=== PATIENT | female | born 1965 | race Caucasian/White ===

== ENCOUNTER 2016-12-13 13:14 | Inpatient (IN) | payer OTHER ==
[~2016-12-13] VITALS: Ht 152.4 cm; Wt 99.6 kg
[~2016-12-13 13:14] MED LIST: ANUSOL-HC25 MG/SUPP PR; ATIVAN0.5 M1 PO; BUS10 PO; COL100 PO; COLACE100 MG PO; FERROUS SULFAT325 M2 PO; LAC30L PO; LASIX20 MG PO; LEXAPRO10 MG PO; LIDODERM51 TP; LYRICA100 M1 PO; MAC100 PO; MECLIZINE25 M2 PO; MOM PO; NOR10T PO; NORCO1 TA2 PO; OMEPRAZOLE40 M1 PO; ONDANSETRON4 M3 PO; PHENTERMINE37.5 MG PO; PROTONIX20 MG PO; PROVENTIL0.09 MG/A1 INH; ROB750 PO; SIMVASTATIN20 M1 PO; SYNTHROID0.1 MG PO; TRAZODONE HYDR150 MG PO; TRAZODONE50 M1; TRAZODONE50 M1 PO; XANAX0.5 MG PO; XARELTO20 M1 PO
[2016-12-13 14:52] LABS: BASOPHIL % 0.3 % (0-2); PLATELET COUNT 250 x10^3mcL (130-400); RED CELL DISTRIBUTION WIDTH 13.4 % (11.5-14.5)
[2016-12-13 15:05] LABS: CALCIUM 8.7 mg/dL (8.5-10.1); CARBON DIOXIDE 25.5 mmol/L (21-32); CHLORIDE SERUM 105 mmol/L (98-107); GFR1 > 60 mL/min; GLUCOSE SERUM 83 mg/dL (74-106); SODIUM SERUM 142 mmol/L (136-145)
[2016-12-13 15:08] LABS: ALBUMIN 3.7 g/dL (3.4-5.0); ALKALINE PHOSPHATASE 68 U/L (46-116); ALT/SGPT 23 U/L (14-59); AST/SGOT 13 U/L (15-37); BILIRUBIN TOTAL 0.4 mg/dL (0.20-1.00); TOTAL PROTEIN, SERUM 7.2 g/dL (6.4-8.2)
[2016-12-13 16:18] LABS: UA SPECIFIC GRAVITY <=1.005 (1.005-1.035); microscopic required? YES; urine erythrocyte 2+ (NEGATIVE)
[2016-12-13] MEDS ORDERED: VENTOLIN H0.09 MG/A1 INH (16:54)
[2016-12-13 17:46] VITALS: BP 138/70
[2016-12-13 17:46] LABS: T3 TOTAL 0.88 ng/mL
[2016-12-13 18:32] LABS: FREE T4 0.7 ng/dL (0.76-1.46)
[2016-12-13 18:35] LABS: AMPHETAMINE QUAL UR NONE DETECTED (NEG <=1000)
[2016-12-13 18:47] LABS: FREE THYROXINE INDEX 1.3 ug/dL (1.4-4.5); T4(THYROXINE) 4.9 ug/dL (4.7-13.3)
[2016-12-13 18:54] LABS: CHOLESTEROL/HDL RATIO 4.5
[2016-12-13 19:54] LABS: PHOSPHOROUS 3.3 mg/dL (2.5-4.9)
[2016-12-13 21:10] VITALS: BP 138/70
[2016-12-13 22:27] VITALS: BP 109/55
[2016-12-14 06:37] LABS: CALCIUM 8.8 mg/dL (8.5-10.1); CARBON DIOXIDE 24.8 mmol/L (21-32); CHLORIDE SERUM 105 mmol/L (98-107); CREATININE SERUM 0.9 mg/dL (0.6-1.0); GFR1 > 60 mL/min; GLUCOSE SERUM 136 mg/dL (74-106); POTASSIUM SERUM 4.7 mmol/L (3.5-5.1); SODIUM SERUM 141 mmol/L (136-145)
[2016-12-14 06:52] LABS: BASOPHIL % 1.7 % (0-2); PLATELET COUNT 222 x10^3mcL (130-400); RED CELL DISTRIBUTION WIDTH 12.7 % (11.5-14.5)
[2016-12-14 07:06] VITALS: BP 117/51
[2016-12-14 09:55] VITALS: BP 105/77
[2016-12-14 15:20] VITALS: BP 125/66
[2016-12-14 18:20] VITALS: BP 99/57
[2016-12-14 21:49] VITALS: BP 96/47
[2016-12-14 23:41] VITALS: BP 114/74
[2016-12-15 06:25] LABS: BASOPHIL % 0.1 % (0-2); PLATELET COUNT 217 x10^3mcL (130-400); RED CELL DISTRIBUTION WIDTH 13.7 % (11.5-14.5)
[2016-12-15 06:36] LABS: CALCIUM 8.1 mg/dL (8.5-10.1); CARBON DIOXIDE 26.2 mmol/L (21-32); CHLORIDE SERUM 107 mmol/L (98-107); CREATININE SERUM 0.9 mg/dL (0.6-1.0); GFR1 > 60 mL/min; GLUCOSE SERUM 124 mg/dL (74-106); MAGNESIUM 1.9 mg/dL (1.8-2.4); PHOSPHOROUS 2.9 mg/dL (2.5-4.9); POTASSIUM SERUM 4.2 mmol/L (3.5-5.1); SODIUM SERUM 141 mmol/L (136-145)
[2016-12-15 06:50] VITALS: BP 110/50
[2016-12-15 09:18] VITALS: BP 118/55
[2016-12-15] MEDS ORDERED: CIPRO500 MG PO (10:04)
[2016-12-15] MEDS ORDERED: LAC PO (10:04)
[2016-12-15] MEDS ORDERED: NOR10T PO (10:05)
[2016-12-15] MEDS ORDERED: FLE10 PO (10:30)
[2016-12-15] MEDS ORDERED: FIORICET1 CAP PO (11:40)
[2016-12-15 12:08] VITALS: BP 118/55
== END 2016-12-15 13:33 | disposition home or self-care (01) | DRG 205 ==
LOC: ED 13:14 → DU 16:33
PROVIDERS: Emergency Medicine; Family Medicine; ADMIT Family Medicine
DX: M94.0 Chondrocostal junction syndrome [Tietze] (principal); E43 Unspecified severe protein-calorie malnutrition; N39.0 Urinary tract infection, site not specified; Z68.41 Body mass index [BMI] 40.0-44.9, adult; K59.00 Constipation, unspecified; E66.01 Morbid (severe) obesity due to excess calories; E03.9 Hypothyroidism, unspecified; M54.9 Dorsalgia, unspecified; G47.00 Insomnia, unspecified; G89.29 Other chronic pain; E78.5 Hyperlipidemia, unspecified; F41.1 Generalized anxiety disorder; J45.909 Unspecified asthma, uncomplicated; D64.9 Anemia, unspecified; R31.9 Hematuria, unspecified; Z90.49 Acquired absence of other specified parts of digestive tract; Z86.718 Personal history of other venous thrombosis and embolism; Z79.01 Long term (current) use of anticoagulants; Z88.5 Allergy status to narcotic agent; Z88.2 Allergy status to sulfonamides; Z91.040 Latex allergy status; Z91.041 Radiographic dye allergy status; Z79.899 Other long term (current) drug therapy; Z84.1 Family history of disorders of kidney and ureter; Z80.9 Family history of malignant neoplasm, unspecified
CPT/HCPCS: 80307; 83880; 84439; 94150; J0696; J1100; J1170; J1885; J2270; J2405; J3010; J7030; J7620; J7633; Q0092

== ENCOUNTER 2017-05-24 18:52 | Inpatient (IN) | payer OTHER ==
[~2017-05-24] VITALS: Ht 152.4 cm; Wt 100.4 kg
[~2017-05-24 18:52] MED LIST changes: +CIPRO500 MG PO; +FIORICET1 CAP PO; +FLE10 PO; +LAC PO; +VENTOLIN H0.09 MG/A1 INH
[2017-05-24] MEDS ORDERED: LEVOTHYROXINE0.1 M2 PO (20:19)
[2017-05-24] MEDS ORDERED: NOR10T PO (20:20)
[2017-05-24] MEDS ORDERED: XAN1 PO (20:21)
[2017-05-24] MEDS ORDERED: ALBUTEROL0.63 MG/3 (20:23)
[2017-05-24 20:25] LABS: BASOPHIL % 0.3 % (0-2); PLATELET COUNT 273 x10^3mcL (130-400); RED CELL DISTRIBUTION WIDTH 14.3 % (11.5-14.5)
[2017-05-24 20:38] LABS: CALCIUM 8.8 mg/dL (8.5-10.1); CHLORIDE SERUM 103 mmol/L (98-107); CREATININE SERUM 0.9 mg/dL (0.6-1.0); GFR1 > 60 mL/min; GLUCOSE SERUM 91 mg/dL (74-106); POTASSIUM SERUM 3.7 mmol/L (3.5-5.1); SODIUM SERUM 139 mmol/L (136-145)
[2017-05-24 20:45] LABS: ALBUMIN 3.8 g/dL (3.4-5.0); ALKALINE PHOSPHATASE 76 U/L (46-116); ALT/SGPT 23 U/L (14-59); AST/SGOT 21 U/L (15-37); BILIRUBIN TOTAL 0.3 mg/dL (0.20-1.00); HDL CHOLESTEROL 44 mg/dL (40-60); LIPASE 102 IU/L (73-393); TOTAL PROTEIN, SERUM 7.3 g/dL (6.4-8.2)
[2017-05-24 20:46] LABS: CHOLESTEROL 228 mg/dL (<200); CHOLESTEROL/HDL RATIO 5.2; TRIGLYCERIDES 261 mg/dL (<150)
[2017-05-24 20:51] LABS: T3 TOTAL 1.22 ng/mL
[2017-05-24 21:31] LABS: UA SPECIFIC GRAVITY 1.025 (1.005-1.035)
[2017-05-24 21:32] LABS: microscopic required? YES; urine erythrocyte TRACE (NEGATIVE)
[2017-05-24 21:51] LABS: FREE T4 0.71 ng/dL (0.76-1.46); FREE THYROXINE INDEX 2.1 ug/dL (1.4-4.5); T4(THYROXINE) 6.9 ug/dL (4.7-13.3)
[2017-05-24 22:00] VITALS: BP 116/75
[2017-05-24 22:08] VITALS: Ht 152.4 cm; Wt 100.4 kg
[2017-05-24 22:43] LABS: MAGNESIUM 1.9 mg/dL (1.8-2.4); PHOSPHOROUS 3.1 mg/dL (2.5-4.9)
[2017-05-24] MEDS ORDERED: VITAMIN C500 M4 PO (23:40)
[2017-05-25 06:12] VITALS: BP 134/89
[2017-05-25 07:14] VITALS: BP 134/89
[2017-05-25 09:26] VITALS: BP 114/50
[2017-05-25 14:21] VITALS: BP 123/75
[2017-05-25 16:45] LABS: AMPHETAMINE QUAL UR NONE DETECTED (NEG <=1000)
[2017-05-25 18:51] VITALS: BP 97/42
[2017-05-25 21:45] VITALS: BP 94/60
[2017-05-26 06:59] VITALS: BP 101/46
[2017-05-26] MEDS ORDERED: PROVENTIL0.09 MG/A1 INH ×2 (13:20→16:18)
[2017-05-26] MEDS ORDERED: TRAZODONE150 M1 PO ×2 (13:21→16:18)
[2017-05-26 16:11] VITALS: BP 101/46
[2017-05-26] MEDS ORDERED: HYDROCODONE BIT1 T49 PO (16:12)
== END 2017-05-26 17:09 | disposition home or self-care (01) | DRG 206 ==
LOC: ED 18:52 → DU 21:14
PROVIDERS: Internal Medicine Gastroenterology; Specialist; ADMIT Family Medicine
PROC: 0DB68ZX Excision of Stomach, Via Natural or Artificial Opening Endoscopic, Diagnostic (ICD-10-PCS; principal; 2017-05-26 08:00)
DX: M94.0 Chondrocostal junction syndrome [Tietze] (principal); Z68.41 Body mass index [BMI] 40.0-44.9, adult; K29.70 Gastritis, unspecified, without bleeding; K82.8 Other specified diseases of gallbladder; J45.909 Unspecified asthma, uncomplicated; R73.03 Prediabetes; E03.9 Hypothyroidism, unspecified; F41.9 Anxiety disorder, unspecified; E66.01 Morbid (severe) obesity due to excess calories; E78.5 Hyperlipidemia, unspecified; Z86.711 Personal history of pulmonary embolism; Z86.718 Personal history of other venous thrombosis and embolism
CPT/HCPCS: 43235; 83880; 84439; 85378; J1200; J1610; J2250; J2270; J2310; J2405; J2765; J3010; J3490; J3535; J7030; J7613; Q0092

== ENCOUNTER 2018-02-23 18:40 | Emergency (ER) | payer OTHER ==
[~2018-02-23] VITALS: Ht 154.9 cm; Wt 102.5 kg
[~2018-02-23 18:40] MED LIST changes: +ALBUTEROL0.63 MG/3; +HYDROCODONE BIT1 T49 PO; +LEVOTHYROXINE0.1 M2 PO; +TRAZODONE150 M1 PO; +VITAMIN C500 M4 PO; +XAN1 PO
[2018-02-23 19:11] VITALS: Ht 154.9 cm; Wt 102.5 kg
[2018-02-24 00:40] VITALS: BP 143/82
== END 2018-02-24 00:40 | disposition home or self-care (01) ==
LOC: ED 18:40
DX: S63.91XA Sprain of unspecified part of right wrist and hand, initial encounter (principal); S66.811A Strain of other specified muscles, fascia and tendons at wrist and hand level, right hand, initial encounter; J45.909 Unspecified asthma, uncomplicated; S86.811A Strain of other muscle(s) and tendon(s) at lower leg level, right leg, initial encounter; Z91.041 Radiographic dye allergy status; Z88.2 Allergy status to sulfonamides; Z88.8 Allergy status to other drugs, medicaments and biological substances; W01.0XXA Fall on same level from slipping, tripping and stumbling without subsequent striking against object, initial encounter; Y93.01 Activity, walking, marching and hiking; Y92.512 Supermarket, store or market as the place of occurrence of the external cause; Y99.8 Other external cause status
CPT/HCPCS: J3010

== ENCOUNTER 2018-04-23 19:27 | Emergency (ER) | payer OTHER ==
[~2018-04-23] VITALS: Ht 154.9 cm; Wt 102.5 kg
[2018-04-23 19:38] VITALS: Ht 154.9 cm; Wt 102.5 kg
[2018-04-23 23:48] VITALS: BP 135/106
== END 2018-04-23 23:48 | disposition home or self-care (01) ==
LOC: ED 19:27
DX: S93.602A Unspecified sprain of left foot, initial encounter (principal); S93.601A Unspecified sprain of right foot, initial encounter; S93.401A Sprain of unspecified ligament of right ankle, initial encounter; S06.9X9A Unspecified intracranial injury with loss of consciousness of unspecified duration, initial encounter; S93.402A Sprain of unspecified ligament of left ankle, initial encounter; J45.909 Unspecified asthma, uncomplicated; F41.9 Anxiety disorder, unspecified; E03.9 Hypothyroidism, unspecified; Z88.2 Allergy status to sulfonamides; Z91.040 Latex allergy status; X58.XXXA Exposure to other specified factors, initial encounter; Y93.89 Activity, other specified; Y92.89 Other specified places as the place of occurrence of the external cause; Y99.8 Other external cause status
CPT/HCPCS: J2270; Q0162

== ENCOUNTER 2018-06-17 18:06 | Emergency (ER) | payer OTHER ==
[~2018-06-17] VITALS: Ht 154.9 cm; Wt 111.1 kg
[2018-06-17 18:13] VITALS: Ht 154.9 cm; Wt 111.1 kg
[2018-06-17 20:09] VITALS: BP 140/89
== END 2018-06-17 20:09 | disposition home or self-care (01) ==
LOC: ED 18:06
DX: S90.31XA Contusion of right foot, initial encounter (principal); J45.909 Unspecified asthma, uncomplicated; E03.9 Hypothyroidism, unspecified; F41.9 Anxiety disorder, unspecified; M79.7 Fibromyalgia; Z88.2 Allergy status to sulfonamides; Z91.040 Latex allergy status; W01.0XXA Fall on same level from slipping, tripping and stumbling without subsequent striking against object, initial encounter; Y93.01 Activity, walking, marching and hiking; Y92.89 Other specified places as the place of occurrence of the external cause; Y99.8 Other external cause status
CPT/HCPCS: J1885

== ENCOUNTER 2019-11-01 18:46 | Inpatient (IN) | payer BC ==
[~2019-11-01] VITALS: Ht 154.9 cm; Wt 111.8 kg
[2019-11-01 19:59] LABS: BASOPHIL % 0.1 % (0-2); PLATELET COUNT 371 x10^3mcL (130-400); RED CELL DISTRIBUTION WIDTH 18.2 % (11.5-14.5)
[2019-11-01 20:14] LABS: CARBON DIOXIDE 27.5 mmol/L (21-32); CHLORIDE SERUM 105 mmol/L (98-107); CREATININE SERUM 0.8 mg/dL (0.6-1.0); GFR1 > 60 mL/min; GLUCOSE SERUM 100 mg/dL (74-106); POTASSIUM SERUM 3.6 mmol/L (3.5-5.1); SODIUM SERUM 142 mmol/L (136-145)
[2019-11-01 20:26] LABS: ALKALINE PHOSPHATASE 110 U/L (46-116); ALT/SGPT 38 U/L (14-59); AMYLASE 34 U/L (25-115); AST/SGOT 25 U/L (15-37); BILIRUBIN TOTAL 0.3 mg/dL (0.20-1.00); LIPASE 101 IU/L (73-393); TOTAL PROTEIN, SERUM 7.5 g/dL (6.4-8.2)
[2019-11-01] MEDS ORDERED: TRAZODONE150 M1 PO (23:00)
[2019-11-01] MEDS ORDERED: XANAX1 MG PO (23:01)
[2019-11-01] MEDS ORDERED: PROAIR RES117 MCG/Ac INH (23:01)
[2019-11-01] MEDS ORDERED: LEVO-T125 MCG PO (23:01)
[2019-11-01] MEDS ORDERED: XARELTO20 M1 PO (23:02)
[2019-11-02] VITALS (7 sets, daily range): BP systolic 105–130; BP diastolic 53–83; Ht 154.9 cm; Wt 111.8 kg
[2019-11-02 00:03] LABS: CHOLESTEROL/HDL RATIO 5.2
[2019-11-02 00:12] LABS: FREE T4 1.19 ng/dL (0.76-1.46); FREE THYROXINE INDEX 3.3 ug/dL (1.4-4.5); T3 TOTAL 1.52 ng/mL; T4(THYROXINE) 9.9 ug/dL (4.7-13.3)
[2019-11-02 03:16] LABS: UA SPECIFIC GRAVITY 1.015 (1.005-1.035); microscopic required? YES; urine erythrocyte NEGATIVE (NEGATIVE)
[2019-11-02 06:13] LABS: BASOPHIL % 0.4 % (0-2); PLATELET COUNT 320 x10^3mcL (130-400)
[2019-11-02 06:47] LABS: CALCIUM 8.6 mg/dL (8.5-10.1); CARBON DIOXIDE 26.5 mmol/L (21-32); CHLORIDE SERUM 107 mmol/L (98-107); CREATININE SERUM 0.8 mg/dL (0.6-1.0); GFR1 > 60 mL/min; GLUCOSE SERUM 98 mg/dL (74-106); MAGNESIUM 1.9 mg/dL (1.8-2.4); POTASSIUM SERUM 3.9 mmol/L (3.5-5.1); SODIUM SERUM 143 mmol/L (136-145)
[2019-11-02 06:57] LABS: RED CELL DISTRIBUTION WIDTH 18.1 % (11.5-14.5)
[2019-11-02 15:54] LABS: AMPHETAMINE QUAL UR NONE DETECTED (See below)
[2019-11-03 04:44] VITALS: BP 123/53
[2019-11-03 07:02] LABS: PLATELET COUNT 324 x10^3mcL (130-400)
[2019-11-03 07:09] LABS: CALCIUM 8.7 mg/dL (8.5-10.1); CARBON DIOXIDE 26.7 mmol/L (21-32); CHLORIDE SERUM 107 mmol/L (98-107); CREATININE SERUM 0.8 mg/dL (0.6-1.0); GFR1 > 60 mL/min; GLUCOSE SERUM 87 mg/dL (74-106); MAGNESIUM 2.2 mg/dL (1.8-2.4); PHOSPHOROUS 3.6 mg/dL (2.5-4.9); SODIUM SERUM 142 mmol/L (136-145)
[2019-11-03 08:01] LABS: RED CELL DISTRIBUTION WIDTH 18.4 % (11.5-14.5)
[2019-11-03 09:48] VITALS: BP 123/69
[2019-11-03 14:31] LABS: BAND NEUTROPHIL 0 % (0-10); MONOCYTE 5 % (0-7); SEGMENTED NEUTROPHILS 67 % (37-75)
[2019-11-03 14:32] LABS: PLATELET MORPHOLOGY PLATELETS INCREASED; rbc morphology (normal/abnorm) ABNORMAL (NORMAL)
[2019-11-03 16:17] VITALS: BP 143/59
[2019-11-03 21:21] VITALS: BP 135/65
[2019-11-04 06:28] VITALS: BP 144/85
[2019-11-04 06:29] LABS: BASOPHIL % 0.1 % (0-2); PLATELET COUNT 311 x10^3mcL (130-400)
[2019-11-04 06:39] LABS: RED CELL DISTRIBUTION WIDTH 17.8 % (11.5-14.5)
[2019-11-04 07:00] LABS: CALCIUM 8.8 mg/dL (8.5-10.1); CARBON DIOXIDE 25.5 mmol/L (21-32); CHLORIDE SERUM 107 mmol/L (98-107); CREATININE SERUM 0.8 mg/dL (0.6-1.0); GFR1 > 60 mL/min; GLUCOSE SERUM 89 mg/dL (74-106); POTASSIUM SERUM 4.8 mmol/L (3.5-5.1); SODIUM SERUM 142 mmol/L (136-145)
[2019-11-04 08:57] VITALS: BP 128/90
[2019-11-04 09:18] LABS: ALBUMIN 3.9 g/dL (3.4-5.0); BILIRUBIN DIRECT 0.1 mg/dL (0.0-0.2); BILIRUBIN TOTAL 0.3 mg/dL (0.20-1.00); TOTAL PROTEIN, SERUM 7.1 g/dL (6.4-8.2)
[2019-11-04 09:44] LABS: TOTAL IRON BINDING CAPACITY 421 ug/dL (250-450)
[2019-11-04 09:50] LABS: IRON 14 ug/dL (50-170)
[2019-11-04 16:31] VITALS: BP 109/56
[2019-11-04 21:32] VITALS: BP 151/92
[2019-11-05 05:30] VITALS: BP 115/65
[2019-11-05 06:27] LABS: BASOPHIL % 0.1 % (0-2); PLATELET COUNT 299 x10^3mcL (130-400)
[2019-11-05 06:47] LABS: CALCIUM 8.8 mg/dL (8.5-10.1); CARBON DIOXIDE 28.9 mmol/L (21-32); CHLORIDE SERUM 110 mmol/L (98-107); CREATININE SERUM 0.8 mg/dL (0.6-1.0); GFR1 > 60 mL/min; GLUCOSE SERUM 118 mg/dL (74-106); POTASSIUM SERUM 4.3 mmol/L (3.5-5.1); SODIUM SERUM 146 mmol/L (136-145)
[2019-11-05 08:39] VITALS: BP 101/68
[2019-11-05 14:40] VITALS: BP 125/105
[2019-11-05 15:15] VITALS: BP 152/85
[2019-11-05 16:30] VITALS: BP 125/77
[2019-11-05 19:23] VITALS: BP 148/79
[2019-11-06 05:18] VITALS: BP 139/66
[2019-11-06 08:52] VITALS: BP 142/61
[2019-11-06 09:56] VITALS: BP 125/105
[2019-11-06 09:58] VITALS: BP 142/61
[2019-11-06] MEDS ORDERED: ENULOSE10 GM/151 PO (10:43)
[2019-11-06] MEDS ORDERED: IRON325 M3 PO (10:43)
[2019-11-06] MEDS ORDERED: AMITIZA24 MC1 PO (10:46)
== END 2019-11-06 11:38 | disposition home or self-care (01) | DRG 392 ==
LOC: ED 18:46 → MU 23:11
PROVIDERS: Internal Medicine Gastroenterology; Specialist; Student in an Organized Health Care Education/Training Program; ADMIT Internal Medicine
PROC: 0DB68ZX Excision of Stomach, Via Natural or Artificial Opening Endoscopic, Diagnostic (ICD-10-PCS; principal; 2019-11-04 08:00)
PROC: 0DBM8ZX Excision of Descending Colon, Via Natural or Artificial Opening Endoscopic, Diagnostic (ICD-10-PCS; 2019-11-04 08:00)
PROC: 0DBN8ZX Excision of Sigmoid Colon, Via Natural or Artificial Opening Endoscopic, Diagnostic (ICD-10-PCS; 2019-11-04 08:00)
PROC: 0F798DZ Dilation of Common Bile Duct with Intraluminal Device, Via Natural or Artificial Opening Endoscopic (ICD-10-PCS; 2019-11-05)
DX: K59.00 Constipation, unspecified (principal); Z68.42 Body mass index [BMI] 45.0-49.9, adult; E03.9 Hypothyroidism, unspecified; J45.909 Unspecified asthma, uncomplicated; F32.9 Major depressive disorder, single episode, unspecified; F41.1 Generalized anxiety disorder; D50.9 Iron deficiency anemia, unspecified; E66.01 Morbid (severe) obesity due to excess calories; M79.7 Fibromyalgia; K64.8 Other hemorrhoids; G35 Multiple sclerosis; K57.90 Diverticulosis of intestine, part unspecified, without perforation or abscess without bleeding; G89.4 Chronic pain syndrome; Z86.711 Personal history of pulmonary embolism; Z88.2 Allergy status to sulfonamides; Z91.040 Latex allergy status; Z86.718 Personal history of other venous thrombosis and embolism; Z90.49 Acquired absence of other specified parts of digestive tract; Z79.01 Long term (current) use of anticoagulants; Z84.1 Family history of disorders of kidney and ureter; Z80.9 Family history of malignant neoplasm, unspecified
CPT/HCPCS: 43235; 43260; 45378; 84439; 94150; C1769; G0378; J0330; J1200; J1610; J1885; J2250; J2270; J2310; J2405; J2704; J3010; J3490; J7030; J7120; Q0092; Q0162; Q0163; Q9967

== ENCOUNTER 2020-10-13 15:01 | Emergency (ER) | payer BC ==
[~2020-10-13] VITALS: Ht 154.9 cm; Wt 87.5 kg
[~2020-10-13 15:01] MED LIST changes: +AMITIZA24 MC1 PO; +ENULOSE10 GM/151 PO; +IRON325 M3 PO; +LEVO-T125 MCG PO; +PROAIR RES117 MCG/Ac INH; +XANAX1 MG PO
[2020-10-13 15:21] VITALS: Ht 154.9 cm; Wt 87.5 kg
[2020-10-13 17:04] LABS: microscopic required? NO
[2020-10-13 17:23] LABS: urine erythrocyte NEGATIVE (NEGATIVE)
[2020-10-13 17:24] LABS: BASOPHIL % 0.4 % (0.2-1.3); PLATELET COUNT 318 x10^3mcL (179-408)
[2020-10-13 17:26] LABS: CALCIUM 9.1 mg/dL (8.5-10.1); CARBON DIOXIDE 31.4 mmol/L (21-32); CHLORIDE SERUM 102 mmol/L (98-107); GFR1 > 60 mL/min; GLUCOSE SERUM 88 mg/dL (74-106); SODIUM SERUM 142 mmol/L (136-145)
[2020-10-13 17:29] LABS: RED CELL DISTRIBUTION WIDTH 17.8 % (12.3-17.7)
[2020-10-13 17:32] LABS: ALBUMIN 4.1 g/dL (3.4-5.0); ALKALINE PHOSPHATASE 83 U/L (46-116); ALT/SGPT 27 U/L (14-59); AST/SGOT 17 U/L (15-37); BILIRUBIN TOTAL 0.4 mg/dL (0.20-1.00); LIPASE 113 IU/L (73-393); TOTAL PROTEIN, SERUM 7.8 g/dL (6.4-8.2)
[2020-10-13 21:26] VITALS: BP 117/53
== END 2020-10-13 21:26 | disposition home or self-care (01) ==
LOC: ED 15:01
PROVIDERS: Emergency Medicine
DX: K59.00 Constipation, unspecified (principal); R10.84 Generalized abdominal pain
CPT/HCPCS: J1885; J2270; J2405; J7030